=== PATIENT | male | born 1985 | race Caucasian/White ===

== ENCOUNTER 2016-11-03 09:40 | Emergency (ER) | payer MEDICAID ==
[~2016-11-03] VITALS: Ht 175.2 cm; Wt 68.0 kg
[~2016-11-03 09:40] MED LIST: CLINDAMYCIN150 MG PO; HYDROCODONE BIT1 T11 PO; NKHM; PEN-VEE K500 MG PO; PENICILLIN VK500 MG PO; Peridex 473 ML473 ML PO; ULTRAM50 MG PO; VICODIN 5/500 505 MG PO
[2016-11-03] MEDS ORDERED: Tobradex 0.3-0.15 ML OPH (09:59)
== END 2016-11-03 10:17 | disposition home or self-care (01) ==
LOC: ED 09:40
DX: H10.33 Unspecified acute conjunctivitis, bilateral (principal); F17.200 Nicotine dependence, unspecified, uncomplicated

== ENCOUNTER 2017-03-17 08:31 | Emergency (ER) | payer OTHER ==
[~2017-03-17] VITALS: Ht 170.1 cm; Wt 65.8 kg
[~2017-03-17 08:31] MED LIST changes: +Tobradex 0.3-0.15 ML OPH
[2017-03-17] MEDS ORDERED: AMOXICILLIN500 M3 PO (08:46)
[2017-03-17] MEDS ORDERED: Motrin,Rufen800 MG PO (08:46)
== END 2017-03-17 08:53 | disposition home or self-care (01) ==
LOC: ED 08:31
DX: K08.89 Other specified disorders of teeth and supporting structures (principal); F17.200 Nicotine dependence, unspecified, uncomplicated

== ENCOUNTER 2018-08-08 19:44 | Emergency (ER) | payer SELFPAY ==
[~2018-08-08] VITALS: Ht 170.1 cm; Wt 63.5 kg
[~2018-08-08 19:44] MED LIST changes: +AMOXICILLIN500 M3 PO; +Motrin,Rufen800 MG PO
[2018-08-08] MEDS ORDERED: Peridex 473 ML473 ML PO (19:52)
[2018-08-08] MEDS ORDERED: NAPROSYN500 MG PO (19:52)
[2018-08-08] MEDS ORDERED: PENICILLIN VK500 MG PO (19:52)
== END 2018-08-08 20:10 | disposition home or self-care (01) ==
LOC: ED 19:44
DX: K02.9 Dental caries, unspecified (principal)

== ENCOUNTER 2020-04-11 20:15 | Emergency (ER) | payer OTHER ==
[~2020-04-11] VITALS: Ht 167.6 cm; Wt 63.5 kg
[~2020-04-11 20:15] MED LIST changes: +AMOXICILLIN500 M2 PO; +NAPROSYN500 MG PO
== END 2020-04-12 00:40 | disposition home or self-care (01) ==
LOC: ED 20:15
DX: S61.411A Laceration without foreign body of right hand, initial encounter (principal); W26.0XXA Contact with knife, initial encounter; Y93.89 Activity, other specified; Y92.89 Other specified places as the place of occurrence of the external cause; Y99.8 Other external cause status

== ENCOUNTER 2020-10-30 13:25 | Emergency (ER) | payer OTHER ==
[~2020-10-30] VITALS: Wt 65.8 kg
== END 2020-10-30 14:21 | disposition left against medical advice (07) ==
LOC: ED 13:25
DX: T63.441A Toxic effect of venom of bees, accidental (unintentional), initial encounter (principal); Z53.21 Procedure and treatment not carried out due to patient leaving prior to being seen by health care provider; Y92.89 Other specified places as the place of occurrence of the external cause

== ENCOUNTER 2022-04-17 12:03 | Emergency (ER) | payer OTHER ==
[~2022-04-17] VITALS: Wt 68.0 kg
[2022-04-17] MEDS ORDERED: AMOXICILLIN500 M2 PO (12:22)
== END 2022-04-17 12:32 | disposition home or self-care (01) ==
LOC: ED 12:03
DX: J02.9 Acute pharyngitis, unspecified (principal)

== ENCOUNTER 2022-09-22 18:16 | Emergency (ER) | payer OTHER ==
[~2022-09-22] VITALS: Ht 167.6 cm; Wt 65.8 kg
[2022-09-22] MEDS ORDERED: AMOX-CLAV 875-1 EACH PO (19:39)
[2022-09-22] MEDS ORDERED: IBU800 M1 PO (19:39)
== END 2022-09-22 19:47 | disposition home or self-care (01) ==
LOC: ED 18:16
DX: K08.89 Other specified disorders of teeth and supporting structures (principal); Z87.891 Personal history of nicotine dependence

== ENCOUNTER 2023-09-23 17:16 | Emergency (ER) | payer OTHER ==
[~2023-09-23] VITALS: Wt 68.0 kg
[~2023-09-23 17:16] MED LIST changes: +AMOX-CLAV 875-1 EACH PO; +IBU800 M1 PO
[2023-09-23] MEDS ORDERED: PENICILLIN VK500 MG PO (17:35)
== END 2023-09-23 17:39 | disposition home or self-care (01) ==
LOC: ED 17:16
DX: K04.7 Periapical abscess without sinus (principal)

== ENCOUNTER 2024-03-23 07:15 | Emergency (ER) | payer OTHER ==
[~2024-03-23] VITALS: Ht 170.1 cm; Wt 65.8 kg
[2024-03-23] MEDS ORDERED: Ketorolac Tromethamine 30 MG/ML VIAL IM ONE (07:45)
[2024-03-23] MEDS ORDERED: MELOXICAM15 MG PO (07:48)
[2024-03-23] MEDS ORDERED: AMOX-CLAV 875-1 EACH PO (07:48)
== END 2024-03-23 08:20 | disposition home or self-care (01) ==
LOC: ED 07:15
DX: K04.7 Periapical abscess without sinus (principal); R22.0 Localized swelling, mass and lump, head; Z87.891 Personal history of nicotine dependence

== ENCOUNTER 2024-06-03 22:57 | Emergency (ER) | payer OTHER ==
[~2024-06-03] VITALS: Ht 167.6 cm; Wt 72.6 kg
[~2024-06-03 22:57] MED LIST changes: +MELOXICAM15 MG PO
[2024-06-03] MEDS ORDERED: Ketorolac Tromethamine 60 MG/2 ML VIAL IM ONE (23:40)
[2024-06-03] MEDS ORDERED: Amoxicillin/Clavulanate Pota 875 MG TAB PO ONE (23:40)
== END 2024-06-03 23:53 | disposition home or self-care (01) ==
LOC: ED 22:57
DX: K04.7 Periapical abscess without sinus (principal); F17.210 Nicotine dependence, cigarettes, uncomplicated